=== PATIENT | male | born 1970 | race Caucasian/White ===

== ENCOUNTER 2022-01-15 23:48 | Emergency (ER) | payer MEDICAID ==
[~2022-01-15] VITALS: Ht 182.9 cm; Wt 95.3 kg
[2022-01-16] VITALS: BP_SYST 156
[2022-01-16] MEDS ORDERED: FLUORESCEIN SODIUM 1 MG OPHTHALMIC STRIP OP ONE (01:00)
[2022-01-16] MEDS ORDERED: TETRACAINE HCL/PF 0.5% OPHTHALMIC DROPS 4 ML OP ONE (01:00)
[2022-01-16 01:08] VITALS: BP_SYST 139
== END 2022-01-16 01:08 | disposition left against medical advice (07) ==
LOC: SED 23:48
DX: T26.92XA Corrosion of left eye and adnexa, part unspecified, initial encounter (principal); X58.XXXA Exposure to other specified factors, initial encounter; Y93.89 Activity, other specified; Y92.89 Other specified places as the place of occurrence of the external cause; Y99.8 Other external cause status
CPT/HCPCS: 99281; 99282